=== PATIENT | male | born 1955 | race Caucasian/White ===

== ENCOUNTER 2024-01-06 13:40 | Inpatient (IN) | payer OTHER ==
[2024-01-06 15:06] LABS: Absolute Basophils 0.1 K/uL (0-0.5); Absolute Eosinophils 0.3 K/uL (0-0.5); Absolute Monocytes 0.6 K/uL (0.1-1.3); Absolute Neutrophil 6.4 K/uL (1.8-8.0); Basophils % 1.2 % (0-1.3); Eosinophils % 3.4 % (0-4.4); Hematocrit 35.1 % (39.6-49.0); Hemoglobin 11.6 g/dL (13.6-17.9); Lymphocytes % 11.4 % (15.3-44.8); MCH 27.9 pg (27.0-35.0); MCHC 33.1 g/dL (32.0-36.0); MPV 7.4 fL (7.6-11.3); Monocytes % 7.7 % (3.3-12.3); Neutrophils % 76.3 % (41.7-73.7); Nucleated Red Blood Cells % 0.1 % (0-0); Platelets 282 thou/uL (152-406); RBC Red Blood Cell Count 4.17 M/uL (4.33-5.43); Red Cell Distribution Width 20.3 % (12.1-15.2)
[2024-01-06 15:13] LABS: PT Prothrombin Time 16.7 SECONDS (9.5-12.5); Protime INR 1.54
[2024-01-06 15:25] LABS: Albumin 3.5 g/dL (3.4-5.0); Albumin/Globulin Ratio 0.8 (1.1-1.8); Anion Gap 8.2 mEq/L (5.0-15.0); Bilirubin Direct 0.3 mg/dL (0-0.2); Bilirubin Indirect, Calculated 0.7 mg/dL (0.2-0.8); Globulin 4.4 g/dL (2.3-3.5); Magnesium 2.2 mg/dL (1.6-2.4); Potassium 3.2 mEq/L (3.5-5.1); Protein, Total 7.9 g/dL (6.4-8.2)
[2024-01-06] MEDS ORDERED: DIAZEPAM 10 MG/2 ML INJ SYRINGE ONE (15:25)
[2024-01-06] MEDS ORDERED: dilTIAZem HCL 25 MG/5 ML VIAL IV ONE ×2 (15:44→16:38)
--- NOTE | 2024-01-06 16:14 | RAD REPORT ---
EXAM DESCRIPTION: [place] Single View01/06/2024 3:09 pm CLINICAL HISTORY: SOB COMPARISON: No comparisons TECHNIQUE: Portable AP view of the chest. FINDINGS: Patchy bilateral airspace opacities including some dependent left basilar airspace opacifi cation. Background mild interstitial opacities. No pneumothorax or effusion. Sequelae of median ster notomy and aortic valve replacement and CABG. Heart is normal in size. Mediastinal contours otherwis e unremarkable. IMPRESSION: Patchy bilateral airspace opacities, may suggest pneumonia, superimposed on chronic inte rstitial changes.
[2024-01-06] MEDS ORDERED: CEFTRIAXONE 1000 MG/VIAL ONE (16:26)
[2024-01-06] MEDS ORDERED: OSELTAMIVIR 75 MG CAP PO ONE (16:26)
[2024-01-06] MEDS ORDERED: AZITHROMYCIN 500 MG INJ IVPB ONE ×2 (16:26→19:48)
[2024-01-06] MEDS ORDERED: NA CHLORIDE 0.9% 0 ML ONE (16:27)
[2024-01-06] MEDS ORDERED: POTASSIUM 25 MEQ EFFERV TAB ONE (16:27)
[2024-01-06] MEDS ORDERED: NA CHLORIDE 0.9% 100 ML ONE (16:27)
[2024-01-06 17:25] LABS: Blood Morphology Comment NOT SEEN (NOT SEEN); Platelet Estimate ADEQ; White Blood Cell Scan OK (OK)
[2024-01-06] MEDS ORDERED: AMIODARONE HCL 150 MG/3 ML INJ IV ONE (17:40)
--- NOTE | 2024-01-06 17:50 | RAD REPORT ---
EXAM DESCRIPTION: CT - Chest For Pe Angio - 01/06/2024 4:48 pm CLINICAL HISTORY: SOB COMPARISON: Chest Single View dated 01/06/2024 TECHNIQUE: Thin axial CT images of the chest were obtained following administration of iodinated int ravenous contrast. Multiplanar reconstructions, and maximum intensity projection reconstructions were generated and reviewed. Exam utilizes a protocol for optimal evaluation of pulmonary arterial tree. All CT scans are performed using dose optimization technique as appropriate and may include automated exposure control or mA/KV adjustment according to patient size. FINDINGS: Pulmonary arteries are normal. No emboli or other suspicious finding. No acute or signific ant aorta findings. Mild central interstitial prominence and thickening along the bronchial mccarty. No mass or other suspi cious infiltrate in the lung parenchyma. Trace layering bilateral pleural effusions. No pneumothorax. The heart is not enlarged. Sequelae of CABG and mitral valve replacement. No abnormal mediastinal or hilar masses or lymphadenopathy seen. No chest wall mass or abnormal axill iary lymphadenopathy. Healing anterior right third rib fracture IMPRESSION: No evidence of acute central pulmonary emboli. Central interstitial prominence with trace bilateral layering effusions, findings which suggest mild pulmonary edema.
[2024-01-06] MEDS: AMIODARONE HCL 900 MG in Dextrose 5%-Water 482 ML IV SCH (18:06)
--- NOTE | 2024-01-06 18:18 | EDPHYS ---
Physician Documentation [facility] Name: Brandon Gallardo Age: 68 yrs Sex: Male : 1955 Arrival Date: 01/06/2024 Time: 13:40 Bed 4 Private MD: ED Physician Jaren Ambrocio HPI: 01/05 14:35 This 68 yrs old Male presents to ER via Ambulatory with complaints of Flu Symptoms, CHF.cp 14:35 The patient has shortness of breath at rest. cp 14:35 Onset: The symptoms/episode began/occurred gradually. Duration: The symptoms are cp continuous, and are steadily getting worse. Associated signs and symptoms: Pertinent positives: chest pain, swelling of legs. Patient is a 68-year-old male with past medical history significant for CHF, endocarditis and a previous stroke who presents to the emergency department with complaints of increasing shortness of breath. Patient reports he was admitted to a hospital in [place] several days ago for shortness of breath and diagnosed with influenza. He reports he was discharged and flew home yesterday but continues to have shortness of breath and intermittent chest pain. Historical: - Allergies: 14:06 No Known Allergies; ll1 - PMHx: 14:06 Congestive heart failure; endocarditis; stroke; ll1 - Immunization history:: Adult Immunizations up to date. - Social history:: Smoking status: Patient denies any tobacco usage or history of. ROS: 14:40 Constitutional: Negative for fever, poor PO intake, cp 14:40 Eyes: Negative for injury, pain, redness, and discharge, cp 14:40 ENT: Negative for drainage from ear(s), ear pain, sore throat, difficulty swallowing, difficulty handling secretions, 14:40 Cardiovascular: Positive for chest pain, edema, 14:40 Respiratory: Positive for shortness of breath, at rest. Negative for cough, wheezing, 14:40 Abdomen/GI: Negative for abdominal pain, vomiting, diarrhea, constipation, 14:40 Neuro: Negative for altered mental status, headache, numbness, syncope, weakness, 14:40 All other systems are negative, Exam: 14:45 Constitutional: The patient appears in no acute distress, alert, awake, cp non-diaphoretic, non-toxic, well developed, well nourished, uncomfortable, 14:45 Head/Face: Normocephalic, atraumatic. cp 14:45 Eyes: Periorbital structures: appear normal, Conjunctiva: normal, no exudate, no injection, Sclera: no appreciated abnormality, Lids and lashes: appear normal, bilaterally, 14:45 ENT: External ear(s): are unremarkable, Nose: is normal, Mouth: Lips: moist, Oral mucosa: pink and intact, moist, Posterior pharynx: Airway: no evidence of obstruction, patent, 14:45 Neck: ROM/movement: is normal, is supple, without pain, no range of motions limitations, no meningismus, no nuchal rigidity, 14:45 Chest/axilla: Inspection: normal, Palpation: is normal, no crepitus, no tenderness, 14:45 Cardiovascular: Rate: tachycardic, Rhythm: regular, Edema: ankle edema, that is moderate, JVD: is not appreciated, 14:45 Respiratory: the patient does not display signs of respiratory distress, Respirations: labored breathing, that is mild, Breath sounds: decreased breath sounds, that are mild, throughout, stridor, is not appreciated, wheezing: is not appreciated, 14:45 Abdomen/GI: Inspection: distension, that is mild, Palpation: abdomen is soft and non-tender, in all quadrants, 14:45 Back: pain, is absent, ROM is normal, 14:45 Neuro: Orientation: to person, place \T\ time. Mentation: is normal, Motor: moves all fours, strength is normal, Sensation: is normal, 15:45 ECG was reviewed by the Attending Physician. cp Vital Signs: 14:07 BP 177 / 103; Pulse 146; Resp 20; Temp 97.5; Pulse Ox 97% on R/A; Weight 99.79 kg; ll1 Height 5 ft. 9 in. ; Pain 3/10; 15:53 BP 129 / 95; Pulse 132; Resp 17 S; Pulse Ox 95% on 2 lpm NC; kc6 16:00 BP 117 / 99; Pulse 140; Resp 18 S; Pulse Ox 92% on R/A; kc6 17:01 BP 128 / 103; Pulse 131; Resp 24 S; Pulse Ox 100% on 2 lpm NC; kc6 17:59 BP 113 / 81; Pulse 132; Resp 25 S; Pulse Ox 95% on 2 lpm NC; kc6 19:10 BP 146 / 98; Pulse 132; Resp 24 S; Pulse Ox 100% on 2 lpm NC; lg3 14:07 Body Mass Index 32.49 (99.79 kg, 175.26 cm) ll1 14:07 Pain Scale: Adult ll1 MDM: 14:05 Patient medically screened. 19:00 Data reviewed: vital signs, nurses notes, lab test result(s), EKG, radiologic studies, cp CT scan, plain films, I have discussed the patient's presentation/case with the attending Emergency Department Physician; and as a result, I will admit patient. 19:00 Antibiotic administration: Rocephin. Management of patient was discussed with the cp following: Hospitalist: DR Carlos. Independent interpretation of the following test(s) in the Emergency Department EKG: See my EKG interpretation above. Care significantly affected by the following chronic conditions: Congestive Heart Failure. Counseling: I had a detailed discussion with the patient and/or guardian regarding the historical points, exam findings, and any diagnostic results supporting the discharge/admit diagnosis, lab results, radiology results, the need for further work-up and treatment in the hospital. Response to treatment: the patient's symptoms have mildly improved after treatment. 01/05 14:26 Order name: Basic Metabolic Panel; Complete Time: 15:38 cp 01/05 15:38 Interpretation: Normal except: K 3.2; CO2 36; GLUC 169; BUN 28; CRE 1.35; GFR 57. cp 01/05 14:26 Order name: CBC with Diff; Complete Time: 17:32 01/05 17:35 Interpretation: Normal except: RBC 4.17; HGB 11.6; HCT 35.1; RDW 20.3; MPV 7.4; ABELARDO% cp 76.3; LYM% 11.4. 01/05 14:26 Order name: LFT's; Complete Time: 15:38 cp 01/05 14:26 Order name: Magnesium; Complete Time: 15:38 cp 01/05 14:26 Order name: NT PRO-BNP; Complete Time: 15:38 cp 01/05 17:49 Interpretation: Abnormal: NT PRO-BNP 1402. 01/05 14:26 Order name: PT-INR; Complete Time: 15:38 cp 01/05 14:26 Order name: Troponin HS; Complete Time: 15:38 cp 01/05 14:26 Order name: Influenza Screen (a \T\ B); Complete Time: 15:38 cp 01/05 17:49 Interpretation: Abnormal: FLUB FLU B ----- POSITIVE for FLU B protein antigen. cp 01/05 14:26 Order name: COVID-19 SARS RT PCR; Complete Time: 15:47 cp 01/05 14:26 Order name: Lactate w/ 2H reflex if indic.; Complete Time: 15:47 cp 01/05 14:26 Order name: Blood Culture Adult (2) cp 01/05 17:25 Order name: CBC Smear Scan; Complete Time: 17:32 EDMS 01/05 19:16 Order name: Urinalysis w/ reflexes EDMS 01/05 19:16 Order name: CBC with Automated Diff EDMS 01/05 19:16 Order name: CBC with Automated Diff EDMS 01/05 19:16 Order name: Comprehensive Metabolic Panel EDMS 01/05 19:16 Order name: Comprehensive Metabolic Panel EDMS 01/05 19:16 Order name: Magnesium EDMS 01/05 19:16 Order name: Magnesium EDMS 01/05 19:16 Order name: Phosphorus EDMS 01/05 19:16 Order name: Phosphorus EDMS 01/05 19:16 Order name: Troponin High Sensitivity EDMS 01/05 19:16 Order name: Troponin High Sensitivity EDMS 01/05 19:16 Order name: Troponin High Sensitivity EDMS 01/05 19:16 Order name: Troponin High Sensitivity EDMS 01/05 20:29 Order name: Lactate Sepsis 2 HR Follow-up EDMS 01/05 14:26 Order name: XRAY Chest (1 view); Complete Time: 17:32 cp 01/05 17:50 Interpretation: Report review. cp 01/05 15:49 Order name: CT Chest For PE Angio; Complete Time: 18:02 cp 01/05 18:03 Interpretation: Report reviewed. cp 01/05 19:19 Order name: Echo with Doppler EDMS 01/05 14:26 Order name: EKG; Complete Time: 14:26 cp 01/05 14:26 Order name: Cardiac monitoring; Complete Time: 15:22 cp 01/05 14:26 Order name: EKG - Nurse/Tech; Complete Time: 15:22 cp 01/05 14:26 Order name: IV Saline Lock; Complete Time: 15:22 cp 01/05 14:26 Order name: Labs collected and sent; Complete Time: 15:22 cp 01/05 14:26 Order name: O2 Per Protocol; Complete Time: 15:22 cp 01/05 14:26 Order name: O2 Sat Monitoring; Complete Time: 15:22 cp EC:45 Rate is 129 beats/min. Rhythm is irregular. QRS interval is normal. QT interval is cp normal. Interpreted by me. Reviewed by me. Administered Medications: 15:29 Drug: Diltiazem IVP 10 mg IVP once; Over 2 minutes Route: IVP; Site: left antecubital; kc6 16:58 Follow up: Response: No adverse reaction; Cardiac rhythm is unchanged kc6 15:49 Not Given (Physician Discretion): [id number] mg IVP once; Over 2 minutes cp 16:21 Not Given (Physician Discretion): [id number] mg IVPB once over 1 hrs; mix in 250 mL NScp 16:36 Drug: Oseltamivir PO 75 mg PO once Route: PO; kc6 17:38 Follow up: Response: No adverse reaction kc6 16:37 Drug: Rocephin IV 1 grams IV at calculated rate once; Given slow IV push per pharmacy kc6 instructions Route: IV; Rate: calculated rate; Site: left wrist; 17:38 Follow up: Response: No adverse reaction; IV Status: Completed infusion; IV Intake: [id number] 16:37 Drug: Potassium PO Effervescent Tablet 50 mEq PO once; dissolve in 4 ounces of water or kc6 juice Route: PO; 17:39 Follow up: Response: No adverse reaction kc6 16:42 Drug: Diltiazem IVP 10 mg IVP once; Over 2 minutes Route: IVP; Site: left wrist; kc6 17:39 Follow up: Response: No adverse reaction; Cardiac rhythm is unchanged kc6 17:53 Drug: amiodarone IVPB 150 mg 100 ml IVPB once over 10 mins; (mix in D5W) Volume: 100 kc6 ml; Route: IVPB; Infused Over: 10 mins; Site: left wrist; 18:30 Follow up: Response: No adverse reaction; Cardiac rhythm is unchanged; IV Status: kc6 Completed infusion; IV Intake: 100ml 18:06 Drug: amiodarone IVPB 900 mg, D5W IV 500 ml IVPB at 1 mg/min continuous; for 6 hrs, kc6 then change to 0.5 mg/min Route: IVPB; Rate: 1 mg/min; Site: left wrist; 18:30 Follow up: Response: No adverse reaction; IV Status: Infusion continued upon admission kc6 Disposition: 01/06 09:23 Co-signature as Attending Physician, Jaren Ambrocio MD I reviewed the patient's care rt provided by the Advanced Practice Provider and agree with the diagnosis and treatment plan. Disposition Summary: 01/06/24 18:18 Hospitalization Ordered Notes: Hospitalization Status: Inpatient Admission cp Provider: Esa Carlos cp Condition: Stable cp Problem: new cp Symptoms: have improved cp Bed/Room Type: Standard cp Location: Telemetry/MedSurg (Inpatient)(01/07/24 01:41) ty Room Assignment: [facility](01/07/24 01:41) ty Diagnosis - Unspecified combined systolic (congestive) and diastolic (congestive) heart failure cp - Unspecified atrial fibrillation cp - Influenza due to other identified influenza virus with other respiratory cp manifestations Forms: - Medication Reconciliation Form cp - SBAR form cp - Leadership Thank You Letter cp Signatures: Dispatcher [employer] EDMS Sonny Mallory PA PA cp Crescencio Taylor RN RN ll1 Ashlyn Aragon RN RN kc6 Bebe Arana RN RN kb3 Jaren Ambrocio MD MD rt Arturo Nash Corrections: (The following items were deleted from the chart) 01/05 21:51 18:18 Telemetry/MedSurg (Inpatient) kb3 21:51 18:18 cp kb3 01/06 01:41 01/05 21:51 [facility] ER HOLD kb3 ty 01/06 01:41 01/05 21:51 ERHOLD- kb3 ty 01/07 01:09 01/05 19:00 Data reviewed: vital signs, nurses notes, lab test result(s), EKG, cp radiologic studies, CT scan, plain films, I have discussed the patient's presentation/case with the attending Emergency Department Physician; and as a result, I will admit patient, cp 01/07 01:01/05 19:00 Antibiotic administration: [facility] 01/07 01:01/05 19:00 Management of patient was discussed with the following: Hospitalist: DR ernst Carlos. 01/07 01:01/05 19:00 Independent interpretation of the following test(s) in the Emergency cp Department EKG: See my EKG interpretation above cp 01/07 01:01/05 19:00 Counseling: I had a detailed discussion with the patient and/or guardian cp regarding the historical points, exam findings, and any diagnostic results supporting the discharge/admit diagnosis, lab results, radiology results, the need for further work-up and treatment in the hospital, 01/07 01:01/05 19:00 Antibiotic administration: Rocephin and Zithromax given, ernst
--- NOTE | 2024-01-06 18:18 | ER ---
Nurse's Notes [facility] Name: Brandon Gallardo Age: 68 yrs Sex: Male : 1955 Arrival Date: 01/06/2024 Time: 13:40 Bed 4 Private MD: Diagnosis: Unspecified combined systolic (congestive) and diastolic (congestive) heart failure;Unspecified atrial fibrillation;Influenza due to other identified influenza virus with other respiratory manifestations Presentation: 01/05 14:07 Chief complaint: Patient states: Diagnosed with CHF last week in [place]. Got ll1 discharged, flew home yesterday, and came in today for evaluation. Still SOB though swelling to BLE is better. Coronavirus screen: Vaccine status: Patient reports receiving the 2nd dose of the covid vaccine. Client indicates they have traveled out of the [place] in the last 14 days. Ebola Screen: Patient denies travel to an Ebola-affected area in the 21 days before illness onset. Initial Sepsis Screen: Does the patient meet any 2 criteria? HR > 90 bpm. No. Patient's initial sepsis screen is negative. Does the patient have a suspected source of infection? No. Patient's initial sepsis screen is negative. Risk Assessment: Do you want to hurt yourself or someone else? Patient reports no desire to harm self or others. Onset of symptoms was December 25, 2023. 14:07 Method Of Arrival: Ambulatory ll1 14:07 Acuity: TOM 2 ll1 Triage Assessment: 14:09 General: Appears uncomfortable, Behavior is calm, cooperative, appropriate for age. ll1 General: Reports fatigue for. Pain: Complains of pain in chest Pain currently is 3 out of 10 on a pain scale. Quality of pain is described as aching. Neuro: No deficits noted. Respiratory: Reports shortness of breath cough that is. Historical: - Allergies: 14:06 No Known Allergies; ll1 - PMHx: 14:06 Congestive heart failure; endocarditis; stroke; ll1 - Immunization history:: Adult Immunizations up to date. - Social history:: Smoking status: Patient denies any tobacco usage or history of. Screenin:20 [facility] ED Fall Risk Assessment (Adult) History of falling in the last 3 months, kc6 including since admission No falls in past 3 months (0 pts) Confusion or Disorientation No (0 pts) Intoxicated or Sedated No (0 pts) Impaired Gait Yes (1 pt) Mobility Assist Device Used Yes (1 pt) Altered Elimination No (0 pt) Score/Fall Risk Level 0 - 2 = Low Risk. Abuse screen: Denies threats or abuse. Denies injuries from another. Nutritional screening: No deficits noted. Tuberculosis screening: No symptoms or risk factors identified. Assessment: 15:20 General: Appears in no apparent distress. uncomfortable, well groomed, well developed, kc6 Behavior is cooperative, appropriate for age, anxious. Pain: Denies pain. Neuro: Level of Consciousness is awake, alert, obeys commands, Oriented to person, place, time, situation, Appropriate for age. Cardiovascular: Denies chest pain, Heart tones S1 S2 present Capillary refill < 3 seconds Rhythm is atrial fibrillation with rapid ventricular response. Respiratory: Airway is patent Trachea midline Respiratory effort is even, labored, Respiratory pattern is symmetrical, tachypnea. GI: No signs and/or symptoms were reported involving the gastrointestinal system. : No signs and/or symptoms were reported regarding the genitourinary system. EENT: No signs and/or symptoms were reported regarding the EENT system. Derm: No signs and/or symptoms reported regarding the dermatologic system. Skin is intact, is healthy with good turgor, Skin is pink, warm \T\ dry. Musculoskeletal: No signs and/or symptoms reported regarding the musculoskeletal system. Circulation, motion, and sensation intact. Capillary refill < 3 seconds, Range of motion: intact in all extremities. 16:20 Reassessment: Patient appears in no apparent distress at this time. No changes from kc6 previously documented assessment. Patient and/or family updated on plan of care and expected duration. Pain level reassessed. Patient is alert, oriented x 3, equal unlabored respirations, skin warm/dry/pink. 17:20 Reassessment: Patient appears in no apparent distress at this time. No changes from kc6 previously documented assessment. Patient and/or family updated on plan of care and expected duration. Pain level reassessed. Patient is alert, oriented x 3, equal unlabored respirations, skin warm/dry/pink. 19:10 General: Appears in no apparent distress. comfortable, Behavior is calm, cooperative. lg3 Pain: Denies pain. Neuro: No deficits noted. Delgado Agitation-Sedation Scale (RASS): 0 - Alert and Calm Level of Consciousness is awake, alert, obeys commands, Oriented to person, place, time, situation. Cardiovascular: Denies chest pain, Heart tones S1 S2 present Capillary refill < 3 seconds Clubbing of nail beds is absent JVD is absent Patient's skin is warm and dry. Rhythm is atrial fibrillation. Respiratory: Airway is patent Trachea midline Respiratory effort is even, unlabored, Respiratory pattern is regular, symmetrical. GI: No deficits noted. No signs and/or symptoms were reported involving the gastrointestinal system. Abdomen is round non-distended. : No deficits noted. No signs and/or symptoms were reported regarding the genitourinary system. EENT: No deficits noted. No signs and/or symptoms were reported regarding the EENT system. Derm: No deficits noted. No signs and/or symptoms reported regarding the dermatologic system. Skin is intact, is healthy with good turgor, Skin is dry, Skin is normal, Skin temperature is warm. Musculoskeletal: No deficits noted. No signs and/or symptoms reported regarding the musculoskeletal system. Circulation, motion, and sensation intact. Range of motion: intact in all extremities. Vital Signs: 14:07 BP 177 / 103; Pulse 146; Resp 20; Temp 97.5; Pulse Ox 97% on R/A; Weight 99.79 kg; ll1 Height 5 ft. 9 in. ; Pain 3/10; 15:53 BP 129 / 95; Pulse 132; Resp 17 S; Pulse Ox 95% on 2 lpm NC; kc6 16:00 BP 117 / 99; Pulse 140; Resp 18 S; Pulse Ox 92% on R/A; kc6 17:01 BP 128 / 103; Pulse 131; Resp 24 S; Pulse Ox 100% on 2 lpm NC; kc6 17:59 BP 113 / 81; Pulse 132; Resp 25 S; Pulse Ox 95% on 2 lpm NC; kc6 19:10 BP 146 / 98; Pulse 132; Resp 24 S; Pulse Ox 100% on 2 lpm NC; lg3 14:07 Body Mass Index 32.49 (99.79 kg, 175.26 cm) ll1 14:07 Pain Scale: Adult ll1 ED Course: 13:41 Patient arrived in ED. mr 13:44 Sonny Mallory PA is PHCP. cp 13:44 Jaren Ambrocio MD is Attending Physician. cp 14:09 Triage completed. ll1 14:09 Arm band placed on. ll1 14:55 Inserted saline lock: 22 gauge in left antecubital area, using aseptic technique. Blood iw collected. 14:55 Initial lab(s) drawn, by me, sent to lab. First set of blood cultures drawn by me. iw 15:11 XRAY Chest (1 view) In Process Unspecified. EDMS 15:20 Patient has correct armband on for positive identification. Placed in gown. Bed in low kc6 position. Call light in reach. Side rails up X2. Client placed on continuous cardiac and pulse oximetry monitoring. NIBP monitoring applied. case monitor on. 15:24 Patient placed in an exam room, on a stretcher. iw 16:37 Inserted saline lock: 20 gauge in left wrist, using aseptic technique. Blood collected. kc6 Patient maintains SpO2 saturation greater than 95% on room air. 16:50 CT Chest For PE Angio In Process Unspecified. EDMS 18:17 Esa Carlos MD is Hospitalizing Provider. cp 19:08 Rhoda Resendez RN is Primary Nurse. lg3 19:10 Door closed. Noise minimized. Warm blanket given. Pillow given. lg3 20:43 No provider procedures requiring assistance completed. Patient admitted, IV remains in lg3 place. 21:39 PO fluids given. Diet: Patient given snack. Patient given juice. Patient given water. [facility] 01/06 01:37 case monitor on. km 01:55 case monitor on. kmf Administered Medications: 01/05 15:29 Drug: Diltiazem IVP 10 mg IVP once; Over 2 minutes Route: IVP; Site: left antecubital; kc6 16:58 Follow up: Response: No adverse reaction; Cardiac rhythm is unchanged kc6 15:49 Not Given (Physician Discretion): [id number] mg IVP once; Over 2 minutes cp 16:21 Not Given (Physician Discretion): [id number] mg IVPB once over 1 hrs; mix in 250 mL NScp 16:36 Drug: Oseltamivir PO 75 mg PO once Route: PO; kc6 17:38 Follow up: Response: No adverse reaction kc6 16:37 Drug: Rocephin IV 1 grams IV at calculated rate once; Given slow IV push per pharmacy kc6 instructions Route: IV; Rate: calculated rate; Site: left wrist; 17:38 Follow up: Response: No adverse reaction; IV Status: Completed infusion; IV Intake: [id number] 16:37 Drug: Potassium PO Effervescent Tablet 50 mEq PO once; dissolve in 4 ounces of water or kc6 juice Route: PO; 17:39 Follow up: Response: No adverse reaction kc6 16:42 Drug: Diltiazem IVP 10 mg IVP once; Over 2 minutes Route: IVP; Site: left wrist; kc6 17:39 Follow up: Response: No adverse reaction; Cardiac rhythm is unchanged kc6 17:53 Drug: amiodarone IVPB 150 mg 100 ml IVPB once over 10 mins; (mix in D5W) Volume: 100 kc6 ml; Route: IVPB; Infused Over: 10 mins; Site: left wrist; 18:30 Follow up: Response: No adverse reaction; Cardiac rhythm is unchanged; IV Status: kc6 Completed infusion; IV Intake: 100ml 18:06 Drug: amiodarone IVPB 900 mg, D5W IV 500 ml IVPB at 1 mg/min continuous; for 6 hrs, kc6 then change to 0.5 mg/min Route: IVPB; Rate: 1 mg/min; Site: left wrist; 18:30 Follow up: Response: No adverse reaction; IV Status: Infusion continued upon admission kc6 Medication: 19:10 VIS not applicable for this client. lg3 Intake: 17:38 IV: 10ml; Total: 10ml. kc6 18:30 IV: 100ml; Total: 110ml. kc6 Outcome: 18:18 Decision to Hospitalize by Provider. cp 20:43 Admitted to ER Hold. Please see [facility] for further documentation. lg3 20:43 Condition: stable 20:43 Instructed on the need for admit, Demonstrated understanding of instructions, 01/06 03:02 Patient left the ED. vc1 Signatures: Dispatcher [employer] EDMS Lucia Peace, Alberto Dominguez mr Evelyn Ortiz RN Sonny Arguello PA PA cp Able, Lacie, RN RN lg3 Crescencio Taylor RN RN ll1 Rachell Cm RN RN vc1 Ashlyn Aragon RN RN [id number] Leidy Narayanan [facility]
[2024-01-06] MEDS ORDERED: ONDANSETRON 4 MG/2 ML VIAL IV PRN (19:11)
[2024-01-06] MEDS ORDERED: ACETAMINOPHEN 325 MG TABLET PO PRN (19:11)
--- NOTE | 2024-01-06 19:11 | P.HP ---
Certification for Inpatient Patient admitted to: Inpatient With expected LOS: >2 Midnights Practitioner: I am a practitioner with admitting privileges, knowledge of patient current condition, hospital course, and medical plan of care. 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 Patient noticed to have worsening of shortness of breath when he was traveling to [place] which prompted him to present to the ER. There he was diagnosed with pneumonia and was admitted for 3 days. He was slightly better and was flown back to [place]. Patient denies any chest pain. Associated with palpitation or shortness of breath. Worse with movements. No fever or chills now. Denies any nausea vomiting or diarrhea. Patient was assessed in the ER and was found to have atrial fibrillation with RVR and was initially treated with Cardizem without much benefit and was started on amiodarone drip. Allergies No Known Allergies Allergy (Unverified 01/06/24 19:19) Home medications list reviewed: Yes - Past Medical/Surgical History Past Medical History: Reviewed- Non-Contributory Past Surgical History: Reviewed- Non-Contributory - Family History Family History: Reviewed- Non-Contributory - Social History Smoking Status: Never smoker Review of Systems 10-point ROS is otherwise unremarkable Physical Examination - Vital Signs Temperature: 97.8 F Blood Pressure: 146/88 Pulse: 128 Respirations: 19 Pulse Ox (%): 96 - Physical Exam General: Alert, Oriented x3, Moderate distress HEENT: Atraumatic, Normocephalic Neck: Supple Respiratory: Normal air movement, Diminished, Crackles/rales Cardiovascular: No edema, No gallops, Irregular heart rate/rhythm, Abnormal S1 S2 Capillary refill: <2 Seconds Gastrointestinal: Soft and benign, W/out hepatosplenomegaly, No ascites Musculoskeletal: No clubbing, No swelling Integumentary: No rashes, No tenderness/swelling Neurological: Normal gait, Normal speech, Normal strength at 5/5 x4 extr, Normal tone, Cranial nerves 3-12 intact Lymphatics: No axilla or inguinal lymphadenopathy - Studies Laboratory Data (last 24 hrs) 01/06/24 01/06/24 01/06/24 14:47 14:47 14:47 WBC 8.40 Hgb 11.6 L Hct 35.1 L Plt Count 282 PT 16.7 H INR 1.54 Sodium 139 Potassium 3.2 L BUN 28 H Creatinine 1.35 H Glucose 169 H Magnesium 2.2 Total Bilirubin 1.0 AST 26 ALT 33 Alkaline Phosphatase 110 Microbiology Data (last 24 hrs): 01/06/24 14:47 Nasopharnyx Influenza Type A Antigen Screen - Final 01/06/24 14:47 Nasopharnyx Influenza Type B Antigen Screen - Final Assessment and Plan - Problems (Diagnosis) (1) Atrial fibrillation with rapid ventricular response Current Visit: Yes Status: Acute Plan: Not to be in A-fib with RVR Previous history of A-fib On Xarelto Continue home medication Initially tried Cardizem without much benefit Started on amiodarone in ER Continue to drip Will get an echocardiogram Cardiology consult (2) CHF (congestive heart failure), NYHA class II Current Visit: Yes Status: Acute Plan: Acute on chronic CHF induced by A-fib Possible systolic/diastolic Will get an echocardiogram Aggressive diuresis Monitor closely on telemetry Restarted Coreg and RYLAN inhibitor/ARB Elevated BNP found Will monitor electrolytes and replace accordingly (3) Multifocal pneumonia Current Visit: Yes Status: Acute Plan: Patient had recent admission for pneumonia Will start on IV antibiotic Will obtain cultures Will change antibiotic as per sensitivity (4) Hypertension Current Visit: Yes Status: Acute Plan: Continue home medications and titrate as needed Discharge Plan: Home Plan to discharge in: Greater than 2 days - Advance Directives Does patient have a Living Will: No Does patient have a Durable POA for Healthcare: No Time Spent Managing Pts Care (In Minutes): 54
[2024-01-06] MEDS: AZITHROMYCIN IV 500 MG in NA CHLORIDE 0.9% 250 ML IVPB SCH (19:15)
[2024-01-06] MEDS: CEFTRIAXONE 1,000 MG in NA CHLORIDE 0.9% 50 ML IVPB SCH (19:15)
[2024-01-06] MEDS ORDERED: NA CHLORIDE 0.9% 250 ML ONE (19:48)
[2024-01-06] MEDS ORDERED: AMIODARONE HCL 900 MG in Dextrose 5%-Water 482 ML IV SCH (20:00)
[2024-01-06 23:05] LABS: Sqamous Epithelial None Seen /HPF (None Seen); Urine Bacteria None Seen /HPF (<20); Urine Bilirubin NEGATIVE (Negative); Urine Blood Negative (Negative); Urine Clarity Clear (Clear); Urine Color Yellow (Yellow); Urine Culture Reflex Order NOT NEEDED; Urine Glucose NEGATIVE (Negative); Urine Ketones NEGATIVE (Negative); Urine Microscopic Reflex YN ORDER UMIC; Urine Mucus Slight /HPF (None Seen); Urine Nitrite NEGATIVE (Negative); Urine Protein 2+ (Negative); Urine RBC <5 /HPF (None Seen); Urine Urobilinogen Normal (Normal); Urine WBC <5 /HPF (<5); Urine pH 6.5 (5.0-7.0)
[2024-01-06 23:09] LABS: Specific Gravity > 1.030 (1.005-1.030)
[2024-01-07] MEDS ORDERED: METOPROLOL TARTRATE 5 MG/5 ML INJ IV ONE (00:29)
[2024-01-07] MEDS: METOPROLOL TARTRATE 5 MG/5 ML INJ IV PRN (00:47)
[2024-01-07] MEDS: FUROSEMIDE 20 MG/ 2ML VIAL IV SCH (01:00)
[2024-01-07] MEDS ORDERED: FUROSEMIDE 20 MG/ 2ML VIAL ONE (02:24)
[2024-01-07 06:54] LABS: Absolute Basophils 0.1 K/uL (0-0.5); Absolute Eosinophils 0.4 K/uL (0-0.5); Absolute Lymphocytes (CBC) 0.7 K/uL (0.7-4.9); Absolute Monocytes 0.7 K/uL (0.1-1.3); Absolute Neutrophil 5.9 K/uL (1.8-8.0); Basophils % 0.8 % (0-1.3); Eosinophils % 5.6 % (0-4.4); Hematocrit 33.8 % (39.6-49.0); Hemoglobin 10.7 g/dL (13.6-17.9); Lymphocytes % 8.5 % (15.3-44.8); MCH 27.1 pg (27.0-35.0); MCHC 31.8 g/dL (32.0-36.0); MCV 85.3 fL (80-100); MPV 7.4 fL (7.6-11.3); Monocytes % 8.7 % (3.3-12.3); Neutrophils % 76.4 % (41.7-73.7); Nucleated Red Blood Cells % 0.1 % (0-0); Platelets 267 thou/uL (152-406); RBC Red Blood Cell Count 3.96 M/uL (4.33-5.43); Red Cell Distribution Width 19.9 % (12.1-15.2)
[2024-01-07 07:04] LABS: Albumin/Globulin Ratio 0.8 (1.1-1.8); Anion Gap 7.3 mEq/L (5.0-15.0); Bilirubin Total 0.7 mg/dL (0.2-1.0); Magnesium 2.3 mg/dL (1.6-2.4); Phosphorus 4.4 mg/dL (2.5-4.9); Potassium 4.3 mEq/L (3.5-5.1)
--- NOTE | 2024-01-07 07:35 | P.PN ---
Subjective Date of Service: 01/07/24 Chief Complaint: SOB/ Palpitation Subjective: No new changes <Brianna Schreiber - Last Filed: 01/07/24 07:38> Date of Service: 01/07/24 <Jayne Mack - Last Filed: 01/08/24 03:45> Review of Systems 10-point ROS is otherwise unremarkable General: As per HPI Respiratory: As per HPI Cardiovascular: Paroxysmal Noc. 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 valve replacement, s/p endocarditis, on amio drip/Eliquis), Irregular heart rate/rhythm Capillary refill: <2 Seconds Gastrointestinal: Soft and benign Musculoskeletal: No clubbing, No swelling Integumentary: No rashes Neurological: Normal speech, Normal tone Lymphatics: No axilla or inguinal lymphadenopathy External genitalia: Deferred Rectal: Deferred - Studies Laboratory Data (last 24 hrs) 01/06/24 01/06/24 01/06/24 14:47 14:47 14:47 WBC 8.40 Hgb 11.6 L Hct 35.1 L Plt Count 282 PT 16.7 H INR 1.54 Sodium 139 Potassium 3.2 L BUN 28 H Creatinine 1.35 H Glucose 169 H Magnesium 2.2 Total Bilirubin 1.0 AST 26 ALT 33 Alkaline Phosphatase 110 Microbiology Data (last 24 hrs): 01/06/24 14:47 Nasopharnyx Influenza Type A Antigen Screen - Final 01/06/24 14:47 Nasopharnyx Influenza Type B Antigen Screen - Final <Brianna Scrheiber - Last Filed: 01/07/24 07:38> Assessment And Plan - Plan Assessment and Plan - Problems (Diagnosis) (1) Atrial fibrillation with rapid ventricular response Current Visit: Yes Status: Acute Plan: Previous history of A-fib On Xarelto Continue home medication Initially tried Cardizem without much benefit Started on amiodarone in ER Continue to drip Will get an echocardiogram Cardiology consult (2) CHF (congestive heart failure), NYHA class II Current Visit: Yes Status: Acute Plan: Acute on chronic CHF induced by A-fib Possible systolic/diastolic Will get an echocardiogram Aggressive diuresis Monitor closely on telemetry Restarted Coreg and RYLAN inhibitor/ARB Elevated BNP found Will monitor electrolytes and replace accordingly (3) Multifocal pneumonia Current Visit: Yes Status: Acute Plan: Patient had recent admission for pneumonia Will start on IV antibiotic Will obtain cultures Will change antibiotic as per sensitivity (4) Hypertension Current Visit: Yes Status: Acute Plan: Continue home medications and titrate as needed Discharge Plan: Home Plan to discharge in: Greater than 2 days - Advance Directives Does patient have a Living Will: No Does patient have a Durable POA for Healthcare: No <Brianna Schreiber - Last Filed: 01/07/24 07:38> Date of Service: 01/07/24 Patient seen and examined. Agree with findings as mentioned above. Continue with diuresing. Continue with Tamiflu. Continue with steroids and diuretics. Repeat chest x-ray in the morning. Echocardiogram pending. Continue amiodarone drip and anticoagulation as well. Continue with strict blood pressure control. <Jayne Mack - Last Filed: 01/08/24 03:45>
[2024-01-07] MEDS: PNEUMOCOCCAL VACCINE 0.5 ML IMVAC ONE (09:59)
[2024-01-07 10:15] LABS: Arterial Blood Carboxyhemoglob 1.9 % (0-1.5); Blood O2 Saturation 93.3 % (92-98.5)
[2024-01-07] MEDS: RIVAROXABAN 15 MG TABLET PO SCH (10:18)
[2024-01-07] MEDS: OSELTAMIVIR 75 MG CAP PO ONE ×2 (13:38→13:42)
[2024-01-07] MEDS: AMIODARONE HCL 900 MG in Dextrose 5%-Water 482 ML IV SCH (18:38)
[2024-01-07] MEDS: OSELTAMIVIR 75 MG CAP PO SCH (20:36)
[2024-01-07] MEDS: METHYLPREDNISOLONE 125 MG INJ IV ONE (20:39)
[2024-01-08] MEDS: METHYLPREDNISOLONE 40 MG INJ IV SCH (00:38)
[2024-01-08] MEDS: AMLODIPINE 10 MG TAB PO SCH (08:40)
[2024-01-08] MEDS: LOSARTAN POTASSIUM 50 MG TABLET PO SCH (08:41)
[2024-01-08 09:37] LABS: Blood Gas THB 10.8 g/dl (12-18)
[2024-01-08] MEDS: METOPROLOL TAR 25 MG TAB PO ONE (09:45)
[2024-01-08 11:26] LABS: Absolute Lymphocytes (CBC) 0.1 K/uL (0.7-4.9); Absolute Monocytes 0.1 K/uL (0.1-1.3); Absolute Neutrophil 9.7 K/uL (1.8-8.0); Basophils % 0.3 % (0-1.3); Hematocrit 33.7 % (39.6-49.0); Hemoglobin 10.8 g/dL (13.6-17.9); Lymphocytes % 1.3 % (15.3-44.8); MCH 27.2 pg (27.0-35.0); MCHC 31.9 g/dL (32.0-36.0); MPV 7.4 fL (7.6-11.3); Monocytes % 0.7 % (3.3-12.3); Neutrophils % 97.7 % (41.7-73.7); Platelets 270 thou/uL (152-406); RBC Red Blood Cell Count 3.97 M/uL (4.33-5.43); Red Cell Distribution Width 20.7 % (12.1-15.2)
[2024-01-08 11:42] LABS: Albumin 3.3 g/dL (3.4-5.0); Albumin/Globulin Ratio 0.8 (1.1-1.8); Anion Gap 9.1 mEq/L (5.0-15.0); Bilirubin Total 0.6 mg/dL (0.2-1.0); Globulin 4.4 g/dL (2.3-3.5); Potassium 4.1 mEq/L (3.5-5.1); Protein, Total 7.7 g/dL (6.4-8.2)
[2024-01-08] MEDS: METOPROLOL TAR 25 MG TAB PO SCH (14:24)
--- NOTE | 2024-01-08 17:29 | EKG ---
Test Date: 2024-01-06 Test Time: 14:01:43 Ramp Attendant: NEDA MEASUREMENT RESULTS: Intervals: Rate: 144 NM: 100 QRSD: 88 QT: 308 QTc: 476 [place]: P: 68 NM: 100 QRS: 234 T: 67 INTERPRETIVE STATEMENTS: Sinus tachycardia with short NM with occasional premature ventricular complexes and fusion complexes Anterior infarct, age undetermined Abnormal ECG No previous ECG available for comparison Electronically Signed On 01-08-24 17:23:19 CDT by Santino Ruiz
--- NOTE | 2024-01-08 17:29 | EKG ---
Test Date: 2024-01-06 Test Time: 15:39:42 Geoduck Diver: MARCIA MEASUREMENT RESULTS: Intervals: Rate: 129 HI: QRSD: 92 QT: 280 QTc: 410 [place]: P: HI: QRS: 141 T: 33 INTERPRETIVE STATEMENTS: Atrial flutter with variable AV block with premature ventricular or aberrantly conducted complexes Right axis deviation Abnormal ECG Compared to ECG 01/06/2024 14:01:43 Right-axis deviation now present Sinus tachycardia no longer present Fusion complex(es) no longer present Short HI interval no longer present Myocardial infarct finding no longer present Electronically Signed On 01-08-24 17:22:03 CDT by Santino Ruiz
--- NOTE | 2024-01-08 19:59 | P.PN ---
Subjective Date of Service: 01/08/24 Chief Complaint: SOB/ Palpitation Subjective: Other (Vapotherm increased over the night. Pt was unable to comfortably converse with me this am. He states he awoke more SOB) Review of Systems 10-point ROS is otherwise unremarkable General: Malaise Respiratory: As per HPI Physical Examination - Vital Signs Temperature: 97.8 F Blood Pressure: 117/77 Pulse: 88 Respirations: 18 Pulse Ox (%): 97 - Physical Exam General: Alert, Mild distress HEENT: Atraumatic, Normocephalic Neck: JVD not distended Respiratory: Other (unable to comfortably speak with me this am. Sitting 90 degrees up in bed. VBG on Vapotherm ordered.) Cardiovascular: Irregular heart rate/rhythm Capillary refill: <2 Seconds Gastrointestinal: Soft and benign Musculoskeletal: No clubbing, No swelling Integumentary: No rashes Neurological: Normal tone Lymphatics: No axilla or inguinal lymphadenopathy External genitalia: Deferred Rectal: Deferred Assessment And Plan - Plan Assessment and Plan - Problems (Diagnosis) (1) Atrial fibrillation with rapid ventricular response Current Visit: Yes Status: Acute Plan: Previous history of A-fib On Xarelto Continue home medication Initially tried Cardizem without much benefit in ED Started on amiodarone in ER - does not seem to be controlling rate well 01/08/24 Add Metoprolol today 01/08/24 Will get an echocardiogram Cardiology consult (2) CHF (congestive heart failure), NYHA class II Current Visit: Yes Status: Acute Plan: Acute on chronic CHF induced by A-fib Possible systolic/diastolic Will get an echocardiogram Aggressive diuresis - on Lasix 20mg IV q 8h Monitor closely on telemetry Restarted Coreg and RYLAN inhibitor/ARB Will monitor electrolytes and replace accordingly (3) Multifocal pneumonia Current Visit: Yes Status: Acute Plan: Patient had recent admission for pneumonia and influenza Continue on IV antibiotic and Tamiflu blood cultures negative 01/08/24 Solumedrol IV decreased today to 40mg q6h 01/08/24 - CT chest findings negative for PE or consolidation, + mild pulmonary edema (4) Hypertension Current Visit: Yes Status: Acute Plan: Continue home medications and titrate as needed Discharge Plan: Home Plan to discharge in: Greater than 2 days - Advance Directives Does patient have a Living Will: No Does patient have a Durable POA for Healthcare: No Discharge Plan: Home Plan to discharge in: Greater than 2 days
[2024-01-08] MEDS: ROSUVASTATIN 10 MG TAB PO SCH (21:58)
--- NOTE | 2024-01-09 13:56 | P.PN ---
Subjective Date of Service: 01/09/24 Chief Complaint: SOB/ Palpitation, improving, O2 at 4L, speaks in full sentences Subjective: Tolerating diet, Improving Review of Systems 10-point ROS is otherwise unremarkable Respiratory: As per HPI Cardiovascular: As per HPI Physical Examination - Vital Signs Temperature: 97.6 F Blood Pressure: 129/77 Pulse: 95 Respirations: 23 Pulse Ox (%): 92 - Physical Exam General: Alert, In no apparent distress, Oriented x3 HEENT: Atraumatic, Normocephalic Neck: Supple Respiratory: Normal air movement Cardiovascular: Normal pulses, Other (decreased palpitations, amiodarone continues but with addition of metoprolol, rate improved, decreased sob) Capillary refill: <2 Seconds Gastrointestinal: Soft and benign Musculoskeletal: No clubbing, No swelling Integumentary: No rashes Neurological: Normal speech, Normal tone Lymphatics: No axilla or inguinal lymphadenopathy External genitalia: Deferred Rectal: Deferred Assessment And Plan - Plan Assessment and Plan - Problems (Diagnosis) (1) Atrial fibrillation with rapid ventricular response Current Visit: Yes Status: Acute Plan: Previous history of A-fib On Xarelto Continue home medication Initially tried Cardizem without much benefit in ED Started on amiodarone in ER - does not seem to be controlling rate well 01/08/24 Add Metoprolol today 01/08/24 Will get an echocardiogram Cardiology consult (2) CHF (congestive heart failure), NYHA class II Current Visit: Yes Status: Acute Plan: Acute on chronic CHF induced by A-fib Possible systolic/diastolic Will get an echocardiogram Aggressive diuresis - on Lasix 20mg IV q 8h Monitor closely on telemetry Restarted Coreg and RYLAN inhibitor/ARB 01/08/24 monitor electrolytes and replace accordingly (3) Multifocal pneumonia Current Visit: Yes Status: Acute Plan: Patient had recent admission for pneumonia and influenza Continue on IV antibiotic and Tamiflu blood cultures negative 01/08/24 Solumedrol IV decreased today 01/08/24 to 40mg q6h 01/08/24 - CT chest findings negative for PE or consolidation, + mild pulmonary edema (4) Hypertension Current Visit: Yes Status: Acute Plan: Continue home medications and titrate as needed Discharge Plan: Home Plan to discharge in: Greater than 2 days - Advance Directives Does patient have a Living Will: No Does patient have a Durable POA for Healthcare: No Discharge Plan: Home Plan to discharge in: 48 Hours
[2024-01-09] MEDS: METOPROLOL TAR 25 MG TAB PO SCH (17:06)
[2024-01-09] MEDS: AMIODARONE HCL 200 MG TAB PO SCH (20:58)
[2024-01-09] MEDS: predniSONE 20 MG TAB PO SCH (20:58)
[2024-01-10 00:29] VITALS: BMI 32.3
[2024-01-10] MEDS: ALBUTEROL 2.5 MG/3 ML NEB SOL NEB SCH (05:07)
[2024-01-10] MEDS: IPRATROPIUM BROM 0.5MG/2.5ML NEB SCH (05:07)
[2024-01-10 07:10] LABS: Absolute Lymphocytes (CBC) 0.3 K/uL (0.7-4.9); Absolute Monocytes 0.8 K/uL (0.1-1.3); Absolute Neutrophil 17.1 K/uL (1.8-8.0); Basophils % 0.1 % (0-1.3); Hematocrit 32.9 % (39.6-49.0); Hemoglobin 10.4 g/dL (13.6-17.9); Lymphocytes % 1.5 % (15.3-44.8); MCH 27.2 pg (27.0-35.0); MCHC 31.7 g/dL (32.0-36.0); MCV 85.8 fL (80-100); MPV 7.3 fL (7.6-11.3); Monocytes % 4.5 % (3.3-12.3); Neutrophils % 93.9 % (41.7-73.7); Platelets 285 thou/uL (152-406); RBC Red Blood Cell Count 3.84 M/uL (4.33-5.43); Red Cell Distribution Width 20.2 % (12.1-15.2)
[2024-01-10 07:29] LABS: Albumin 3.3 g/dL (3.4-5.0); Albumin/Globulin Ratio 0.8 (1.1-1.8); Anion Gap 8.7 mEq/L (5.0-15.0); Bilirubin Total 0.6 mg/dL (0.2-1.0); Globulin 3.9 g/dL (2.3-3.5); Magnesium 2.5 mg/dL (1.6-2.4); Phosphorus 4.1 mg/dL (2.5-4.9); Potassium 4.7 mEq/L (3.5-5.1); Protein, Total 7.2 g/dL (6.4-8.2)
--- NOTE | 2024-01-10 08:23 | RAD REPORT ---
[facility] DES[facility] 4:34 am CLINICAL HISTORY: pneumonia COMPARISON: Chest Single View dated 01/06/2024; Chest For Pe Angio dated 01/06/2024 TECHNIQUE: Portable AP view of the chest. FINDINGS: The lungs are clear. Mild central interstitial prominence, partially improved since the pr ior exam. No pneumothorax or effusion. The cardiomediastinal contours are unremarkable. IMPRESSION: No acute cardiopulmonary process. Partial improvement of central interstitial prominenc e.
[2024-01-10 08:24] LABS: Band Neutrophils 1 % (0-1); Differential Total Cells Count 100; Monocytes 5 % (0-10); Segmented Neutrophils 94 % (40-80)
[2024-01-10 08:25] LABS: Anisocytosis 1+; Blood Morphology Comment NOTED (NOT SEEN); Platelet Estimate ADEQ; Polychromasia SLIGHT; Stomatocytes 1+; Target Cells FEW; Teardrop Cell FEW
[2024-01-10] MEDS ORDERED: FUROSEMIDE 20 MG/ 2ML VIAL IV SCH (09:00)
[2024-01-10] MEDS: FUROSEMIDE 40 MG/4 ML VIAL IV SCH (10:11)
[2024-01-10] MEDS: HYDROCODONE/CHLORPHEN 5 ML/OSYR PO ONE (13:24)
--- NOTE | 2024-01-10 13:26 | P.PN ---
Subjective Date of Service: 01/10/24 Chief Complaint: improving, started steroids, neb treatments, and switched to po amiodarone Subjective: Improving (Pt states he did not rest as well last pm, Steroids?. + cough, will see if Tussionex provides any rest/relief) Review of Systems 10-point ROS is otherwise unremarkable Respiratory: Cough, Shortness of Breath, SOB with Excertion, As per HPI Physical Examination - Vital Signs Temperature: 97.2 F Blood Pressure: 147/75 Pulse: 97 Respirations: 18 Pulse Ox (%): 98 - Physical Exam General: Alert, In no apparent distress, Oriented x3 HEENT: Atraumatic, Normocephalic Neck: Supple, 2+ carotid pulse no bruit Respiratory: Diminished, Expiratory wheezes Cardiovascular: No edema, Normal pulses, Other (more rate control), Irregular heart rate/rhythm Capillary refill: <2 Seconds Gastrointestinal: Soft and benign Musculoskeletal: No clubbing, No swelling Integumentary: No rashes Neurological: Normal gait, Normal speech, Normal tone Lymphatics: No axilla or inguinal lymphadenopathy External genitalia: Deferred Rectal: Deferred Assessment And Plan - Plan Assessment and Plan - Problems (Diagnosis) (1) Atrial fibrillation with rapid ventricular response Current Visit: Yes Status: Acute Plan: Previous history of A-fib On Xarelto Continue home medication Initially tried Cardizem without much benefit in ED Started on amiodarone in ER - does not seem to be controlling rate well 01/08/24 Add Metoprolol today 01/08/24 rate more controlled yesterday and today, stopped amiodarone drip 01/10/24 and started it po 200mg BID Will get an echocardiogram tomorrow 01/11/24 Cardiology consult (2) CHF (congestive heart failure), NYHA class II Current Visit: Yes Status: Acute Plan: Acute on chronic CHF induced by A-fib Possible systolic/diastolic Will get an echocardiogram Aggressive diuresis - on Lasix 40mg IV daily, one extra 20mg IV dose given this am Monitor closely on telemetry Restarted Coreg and RYLAN inhibitor/ARB 01/08/24 monitor electrolytes and replace accordingly (3) Multifocal pneumonia Current Visit: Yes Status: Acute Plan: Patient had recent admission for pneumonia and influenza Continue on IV antibiotic and Tamiflu blood cultures negative 01/08/24 Solumedrol IV decreased today 01/08/24 to 40mg q6h 01/08/24 - CT chest findings negative for PE or consolidation, + mild pulmonary edema 01/10/24 Repeat CXR with mild improvement in overload (4) Hypertension Current Visit: Yes Status: Acute Plan: Continue home medications and titrate as needed Discharge Plan: Home Plan to discharge in: Greater than 2 days - Advance Directives Does patient have a Living Will: No Does patient have a Durable POA for Healthcare: No
[2024-01-10] MEDS: FUROSEMIDE 20 MG/ 2ML VIAL IV ONE (16:32)
[2024-01-10] MEDS: AMIODARONE HCL 200 MG TAB PO SCH (21:21)
--- NOTE | 2024-01-11 08:12 | P.PN ---
Subjective Date of Service: 01/11/24 Chief Complaint: improving, started steroids, neb treatments, and switched to po amiodarone Presented with multifocal pneumonia, treated with nebulizers, A-fib, congestive heart failure, Elevated WBCs likely secondary to steroid use, O2 97% on 4l plan to wean O2 today - Physical Exam General: Alert, In no apparent distress, Oriented x3 HEENT: Atraumatic, Normocephalic Neck: Supple, 2+ carotid pulse no bruit Respiratory: Diminished, equal unlabored Cardiovascular: No edema, Normal pulses, Other irregular A-fib Capillary refill: <2 Seconds Gastrointestinal: Soft and benign Musculoskeletal: No clubbing, No swelling Integumentary: No rashes Neurological: Normal gait, Normal speech, Normal tone Lymphatics: No axilla or inguinal lymphadenopathy Review of Systems Per HPI Physical Examination - Vital Signs Temperature: 97.4 F Blood Pressure: 134/87 Pulse: 80 Respirations: 20 Pulse Ox (%): 96 Assessment And Plan - Plan Assessment plan Acute hypoxic hypercarbic respiratory failure secondary to multifocal pneumonia Placed on on BiPAP on admission O2 2 L keep sats greater than 90%, Nebulizers, IV antibiotics, steroids 01/08/24 - CT chest findings negative for PE or consolidation, + mild pulmonary edema 01/10/24 Repeat CXR with mild improvement in overload A-fib RVR uncontrolled Started on amiodarone in ER - does not seem to be controlling rate well 01/08/24 Restarted Coreg and RYLAN inhibitor/ARB 01/08/24 Add Metoprolol today 01/08/24 rate more controlled yesterday and today, stopped amiodarone drip 01/10/24 and started it po 200mg BID echocardiogram ordered 01/11/24 Decompensated acute on chronic heart failure Elevated BNP Telemetry, BNP Diuresis, Lasix daily I&O, daily BNP 01/07 1399, 01/08 1681 Acute on chronic kidney injury likely secondary to prerenal congestive heart failure versus diuretic use BUN 25/1.07->, 30/1.34-> 48/1.12-> Creatinine1.07, Microcytic anemia Trend H&H hemoglobin 10.7, 10.8, 10.4 Essential hypertension Resume appropriate home meds Full code DVT Xarelto Diet cardiac Disposition Home independent Discharge Plan: Home - Code Status/Comfort Care Code Status: Full Code Critical Care: No Time Spent Managing PTS Care (In Minutes): 35
[2024-01-11 09:45] VITALS: O2SAT 96
--- NOTE | 2024-01-11 10:17 | P.DS ---
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 Patient noticed to have worsening of shortness of breath when he was traveling to [place] which prompted him to present to the ER. There he was diagnosed with pneumonia and was admitted for 3 days. He was slightly better and was flown back to [place]. Patient denies any chest pain. Associated with palpitation or shortness of breath. Worse with movements. No fever or chills now. Denies any nausea vomiting or diarrhea. Patient was assessed in the ER and was found to have atrial fibrillation with RVR and was initially treated with Cardizem without much benefit and was started on amiodarone drip. (%): 96 - Physical Exam General: Alert, Oriented x3, Moderate distress HEENT: Atraumatic, Normocephalic Neck: Supple Respiratory: Normal air movement, equal unlabored Cardiovascular: No edema, No gallops, Irregular heart rate/rhythm, Abnormal S1 S2 Capillary refill: <2 Seconds Gastrointestinal: Soft and benign, W/out hepatosplenomegaly, No ascites Musculoskeletal: No clubbing, No swelling Integumentary: No rashes, No tenderness/swelling Neurological: Normal gait, Normal speech, Normal strength at 5/5 x4 extr, Normal tone, Cranial nerves 3-12 intact Hospital Course: 68 year old male with admitted with pneumonia, heart failure, atrial fibrillation. was treated with oxygen, steroids, diuretics. Patient is scheduled for cardiac ablation tomorrow. will ambulate to see if he needs home 02. Discharge home to follow up with cardiology for abalation tomorrow. Assessment afib heart failure pneumomia hypoxia chronic anticogulation new home medication Corderone BID (follow up with cardiology to refill) Follow up with cardiology for scheduled ablation continue home medicines as previously prescribed GOAL: Clear understanding of disease process INSTRUCTIONS: Physician Discharge Instructions: -Follow-up with PCP in 1 to 2 weeks -Please call if any questions regarding hospital stay -Please call nursing station at [phone] if any nursing or medication questions -Return to the emergency room if symptoms worsen Diet: ADA, low sodium Activity: Fall precautions <Carla Salter - Last Filed: 01/11/24 14:55> Admission Date: 01/06/24 Discharge Date: 01/11/24 Hospital Course: Pt seen and examined. I agree with the note by the STRATEGY SPECIALIST. Continue tamiflu at home. Follow up with boat officer tomorrow. <Jessi Girard - Last Filed: 01/11/24 15:17> Disposition: ROUTINE DISCHARGE Discharge Condition: FAIR Vital Signs/Physical Exam: Temp Pulse Resp BP Pulse Ox 97.4 F 80 20 134/87 96 01/11/24 08:15 01/11/24 09:29 01/11/24 08:15 01/11/24 09:29 01/11/24 08:15 Laboratory Data at Discharge: WBC 18.20 thou/uL (4.3-10.9) H 01/10/24 06:53 Hgb 10.4 g/dL (13.6-17.9) L 01/10/24 06:53 Hct 32.9 % (39.6-49.0) L 01/10/24 06:53 Plt Count 285 thou/uL (152-406) 01/10/24 06:53 PT 16.7 SECONDS (9.5-12.5) H 01/06/24 14:47 INR 1.54 01/06/24 14:47 Sodium 137 mEq/L (136-145) 01/10/24 06:53 Potassium 4.7 mEq/L (3.5-5.1) 01/10/24 06:53 BUN 48 mg/dL (7-18) H 01/10/24 06:53 Creatinine 1.12 mg/dL (0.70-1.30) 01/10/24 06:53 Glucose 148 mg/dL (74-106) H 01/10/24 06:53 Phosphorus 4.1 mg/dL (2.5-4.9) 01/10/24 06:53 Magnesium 2.5 mg/dL (1.6-2.4) H 01/10/24 06:53 Total Bilirubin 0.6 mg/dL (0.2-1.0) 01/10/24 06:53 AST 36 U/L (15-37) 01/10/24 06:53 ALT 48 U/L (16-61) 01/10/24 06:53 Alkaline Phosphatase 87 U/L (45-117) 01/10/24 06:53 <Carla Salter - Last Filed: 01/11/24 14:55> Vital Signs/Physical Exam: Temp Pulse Resp BP Pulse Ox 98.1 F 71 21 H 116/72 94 01/11/24 12:00 01/11/24 12:00 01/11/24 12:00 01/11/24 12:00 01/11/24 12:00 Laboratory Data at Discharge: WBC 18.20 thou/uL (4.3-10.9) H 01/10/24 06:53 Hgb 10.4 g/dL (13.6-17.9) L 01/10/24 06:53 Hct 32.9 % (39.6-49.0) L 01/10/24 06:53 Plt Count 285 thou/uL (152-406) 01/10/24 06:53 PT 16.7 SECONDS (9.5-12.5) H 01/06/24 14:47 INR 1.54 01/06/24 14:47 Sodium 137 mEq/L (136-145) 01/10/24 06:53 Potassium 4.7 mEq/L (3.5-5.1) 01/10/24 06:53 BUN 48 mg/dL (7-18) H 01/10/24 06:53 Creatinine 1.12 mg/dL (0.70-1.30) 01/10/24 06:53 Glucose 148 mg/dL (74-106) H 01/10/24 06:53 Phosphorus 4.1 mg/dL (2.5-4.9) 01/10/24 06:53 Magnesium 2.5 mg/dL (1.6-2.4) H 01/10/24 06:53 Total Bilirubin 0.6 mg/dL (0.2-1.0) 01/10/24 06:53 AST 36 U/L (15-37) 01/10/24 06:53 ALT 48 U/L (16-61) 01/10/24 06:53 Alkaline Phosphatase 87 U/L (45-117) 01/10/24 06:53 <Jessi Girard - Last Filed: 01/11/24 15:17> Time spent managing pt's care (in minutes): 55 <Carla Salter - Last Filed: 01/11/24 14:55> <Jessi Girard - Last Filed: 01/11/24 15:17> Home Medications: Amlodipine Besylate/Valsartan [Amlodipine-Valsartan 5-320 mg] 1 tab PO DAILY 01/07/24 Carvedilol [Coreg] 25 mg PO BID 01/07/24 Chlorthalidone 25 mg PO DAILY 01/07/24 Ezetimibe 10 mg PO DAILY 01/07/24 Furosemide [Lasix*] 20 mg PO DAILY 01/07/24 Omeprazole 20 mg PO DAILY 01/07/24 Rivaroxaban [Xarelto] 20 mg PO DAILY 01/07/24 Rosuvastatin Calcium 40 mg PO BEDTIME 01/07/24 Amiodarone HCl [Cordarone*] 200 mg PO BID 7 Days #14 tab 01/11/24 New Medications: Amiodarone HCl [Cordarone*] 200 mg PO BID 7 Days #14 tab Physician Discharge Instructions: 68 year old male with admitted with pneumonia, heart failure, atrial fibrillation. was treated with oxygen, steroids, diuretics. Patient is scheduled for cardiac ablation tomorrow. will ambulate to see if he needs home 02. Discharge home to follow up with cardiology for abalation tomorrow. Assessment afib heart failure from fluid overload hypoxia chronic anticogulation new home medication Corderone BID (follow up with cardiology to refill) Follow up with cardiology for scheduled ablation continue home medicines as previously prescribed GOAL: Clear understanding of disease process INSTRUCTIONS: Physician Discharge Instructions: -Follow-up with PCP in 1 to 2 weeks -Please call if any questions regarding hospital stay -Please call nursing station at [phone] if any nursing or medication questions -Return to the emergency room if symptoms worsen Diet: ADA, low sodium Activity: Fall precautions Followup: OOT,OOT [Primary Care Provider] - Santino Ruiz MD [ACTIVE - CAN ADMIT] -
[2024-01-11 12:40] VITALS: BP 116/72; TEMP 98.1
--- NOTE | 2024-01-12 06:59 | ECHO ---
HEIGHT: 5 ft 9 in WEIGHT: 218 lb 11.2 oz DATE OF STUDY: 01/11/[address]: Brianna Schreiber BODY SERVICE TEAM MEMBER-BC 2-DIMENSIONAL: YES M.MODE: YES DOPPLER: YES COLOR FLOW: YES TDS: PORTABLE: YES DEFINITY: BUBBLE STUDY: DIAGNOSIS: DYSPNEA, CT OVERLOAD, ATRIAL FIBRILLATION WITH RAPID VENTRICULAR RESPONSE CARDIAC HISTORY: CATHERIZATION: YES SURGERY: YES PROSTHETIC VALVE: YES PACEMAKER: NO MEASUREMENTS (cm) DIASTOLIC (NORMALS) SYSTOLIC (NORMALS) IVSd 1.1 (0.6-1.2) LA Diam 2.8 (1.9-4.0) LVEF 50-55% LVIDd 4.4 (3.5-5.7) LVIDs 3.5 (2.0-3.5) %FS 21% LVPWd 1.1 (0.6-1.2) Ao Diam 3.3 (2.0-3.7) 2 DIMENSIONAL ASSESSMENT: RIGHT ATRIUM: NORMAL LEFT ATRIUM: ENLARGED RIGHT VENTRICLE: NORMAL LEFT VENTRICLE: NORMAL TRICUSPID VALVE: MILD TRICUSPID REGURGITATION MITRAL VALVE: HEAVILY CALCIFIED PULMONIC VALVE: NORMAL AORTIC VALVE: MODERATE AORTIC INSUFFICIENCY PERICARDIAL EFFUSION: NONE AORTIC ROOT: NORMAL LEFT VENTRICULAR WALL MOTION: NORMAL DOPPLER/COLOR FLOW: SEE BELOW COMMENTS: 1. NORMAL LEFT VENTRICULAR EJECTION FRACTION 50-55% 2. HAVILY CALCIFIED MITRAL VALVE WITH SEVERE MITRAL STENOSIS AND MILD MITRAL REGURGITATION 3. LEFT ATRIAL ENLARGEMENT 4. 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
== END 2024-01-11 13:33 | disposition home or self-care (01) | DRG 291 ==
LOC: ER 13:40 → ERHOLD 19:11 → 4TH 01-07 02:22
PROVIDERS: ADMIT Family Medicine; ATTEND Hospitalist
PROC: 4A033R1 Measurement of Arterial Saturation, Peripheral, Percutaneous Approach (ICD-10-PCS; principal; 2024-01-07)
PROC: 5A09457 Assistance with Respiratory Ventilation, 24-96 Consecutive Hours, Continuous Positive Airway Pressure (ICD-10-PCS; 2024-01-07)
PROC: 5A0945A Assistance with Respiratory Ventilation, 24-96 Consecutive Hours, High Flow/Velocity Cannula (ICD-10-PCS; 2024-01-08)
DX: I11.0 Hypertensive heart disease with heart failure (principal); I50.31 Acute diastolic (congestive) heart failure; J10.00 Influenza due to other identified influenza virus with unspecified type of pneumonia; I48.91 Unspecified atrial fibrillation; Z23 Encounter for immunization; Z95.2 Presence of prosthetic heart valve; Z11.52 Encounter for screening for COVID-19; Z79.01 Long term (current) use of anticoagulants; Z86.73 Personal history of transient ischemic attack (TIA), and cerebral infarction without residual deficits
CPT/HCPCS: 36415; 36600; 71045; 71275; 80048; 80053; 80076; 81001; 82805; 83605; 83735; 83880; 84100; 84145; 84484; 85025; 85610; 87040; 87635; 87804; 90471; 90732; 93005; 93306; 94640; 94660; 94760; 99285; J0282; J0696; J1940; J2920; J2930; J3360; J7050; J7060; J7512; J7613; J7644; Q9967